=== PATIENT | male | born 1960 | race African-American/Black ===

== ENCOUNTER 2017-12-07 12:28 | Inpatient (IN) | payer BC, OTHER ==
[~2017-12-07] VITALS: Ht 180.3 cm; Wt 93.9 kg
[2017-12-07] MEDS ORDERED: MORPHINE SULFATE 4 MG/ML CPJ (NOT FOR IM USE) IV ONE (15:15)
[2017-12-07] MEDS ORDERED: ONDANSETRON HCL 4MG/2ML VIAL IV ONE (15:15)
[2017-12-07] MEDS ORDERED: SODIUM CHLORIDE 0.9% 1,000 ML IV ONE (16:15)
[2017-12-07] MEDS ORDERED: KETOROLAC 30MG/ML VIAL IV ONE (16:15)
[2017-12-07 16:55] LABS: BASOPHILS % 0.4 % (0.0-2.0); EOSINOPHILS % 0.4 % (0.0-5.0); HEMATOCRIT. 41.9 % (42.0-52.0); HEMOGLOBIN. 13.8 g/dL (14.0-18.0); LYMPHOCYTES % 14.1 % (20.0-50.0); MEAN CORPUSCULAR HEMOGLOBIN 30.4 pg (28.0-32.0); MEAN CORPUSCULAR VOLUME 92.3 fL (80.0-94.0); MEAN PLATELET VOLUME 7.7 fl (7.4-10.4); MONOCYTES % 4.6 % (2.0-8.0); NEUTROPHILS % 80.5 % (40.0-76.0); PLATELET 239 x1000/uL (130-400); RED BLOOD CELL COUNT 4.54 mill/uL (4.7-6.1); RED CELL DISTRIBUTION WIDTH 13.9 % (11.6-14.6)
[2017-12-07 16:57] LABS: CHLORIDE 106 mEq/L (98-107)
[2017-12-07 19:37] LABS: INR 1.1; PROTHROMBIN TIME 11.4 sec (9.4-11.6)
[2017-12-07 21:30] VITALS: BP 120/68
[2017-12-07] MEDS ORDERED: NA PHOS,M-B/NA PHOS,DI-BA ENEMA 118ML PR PRN (22:15)
[2017-12-07] MEDS ORDERED: IPRATROPIUM/ALBUTEROL 0.5-3(2.5)MG/3ML NEB INH PRN (22:15)
[2017-12-07] MEDS ORDERED: MAGNESIUM/ALUMINUM HYDROXIDE/SIMETHICONE 30ML UDC PO PRN (22:15)
[2017-12-07] MEDS ORDERED: GUAIFENESIN 200MG/10ML SUGAR FREE UDC PO PRN (22:15)
[2017-12-07] MEDS ORDERED: HYDROCODONE/ACETAMINOPHEN 5/325MG TABLET PO PRN (22:15)
[2017-12-07] MEDS ORDERED: DOCUSATE SODIUM 100MG CAPSULE PO PRN (22:15)
[2017-12-07] MEDS ORDERED: ACETAMINOPHEN 325MG TABLET PO PRN (22:15)
[2017-12-07] MEDS ORDERED: ACETAMINOPHEN 650MG SUPP PR PRN (22:15)
[2017-12-07] MEDS ORDERED: DIPHENHYDRAMINE 50MG/ML VIAL IV PRN (22:15)
[2017-12-07] MEDS ORDERED: ACETAMINOPHEN 650MG/20.3ML UDC GT PRN (22:15)
[2017-12-07] MEDS ORDERED: CLONIDINE 0.1MG TABLET PO PRN (22:15)
[2017-12-07] MEDS ORDERED: ONDANSETRON HCL 4MG/2ML VIAL IV PRN (22:15)
[2017-12-07] MEDS ORDERED: ENOXAPARIN 40MG/0.4ML SYR SUBCUT SCH (23:00)
[2017-12-07] MEDS: MORPHINE SULFATE 4 MG/ML CPJ (NOT FOR IM USE) IV PRN (23:25)
[2017-12-07 23:49] VITALS: BP 120/68
[2017-12-08] VITALS: BP 120/76
[2017-12-08] MEDS: HYDROCODONE/ACETAMINOPHEN 10/325MG TABLET PO PRN ×2 (02:07→08:18)
[2017-12-08 04:00] VITALS: BP 110/61
[2017-12-08] MEDS: MORPHINE SULFATE 4 MG/ML CPJ (NOT FOR IM USE) IV PRN ×3 (05:14→15:34)
[2017-12-08] MEDS ORDERED: SODIUM CHLORIDE 0.9% INJ 3ML FLUSH IVF SCH (06:00)
[2017-12-08 07:23] LABS: BASOPHILS % 0.2 % (0.0-2.0); EOSINOPHILS % 1.8 % (0.0-5.0); HEMOGLOBIN. 12.6 g/dL (14.0-18.0); LYMPHOCYTES % 28.2 % (20.0-50.0); MEAN CORPUSCULAR HEMOGLOBIN 31.2 pg (28.0-32.0); MEAN CORPUSCULAR VOLUME 91.4 fL (80.0-94.0); MEAN PLATELET VOLUME 8.1 fl (7.4-10.4); MONOCYTES % 8.2 % (2.0-8.0); NEUTROPHILS % 61.6 % (40.0-76.0); PLATELET 213 x1000/uL (130-400); RED BLOOD CELL COUNT 4.05 mill/uL (4.7-6.1); RED CELL DISTRIBUTION WIDTH 13.6 % (11.6-14.6)
[2017-12-08 08:00] VITALS: BP 126/66
[2017-12-08 08:09] LABS: CHLORIDE 107 mEq/L (98-107)
[2017-12-08 08:18] LABS: HDL CHOLESTEROL 45 mg/dL (40-59); LDL CHOLESTEROL 108 mg/dL (5-100)
[2017-12-08 12:00] VITALS: BP 120/71
[2017-12-08 15:34] VITALS: BP 128/78
== END 2017-12-08 16:18 | disposition short-term general hospital (02) | DRG 563 ==
LOC: ER 12:57 → 6EST 16:52 → ENRESERV 20:35
PROVIDERS: ADMIT Internal Medicine Pulmonary Disease; ATTEND Internal Medicine Pulmonary Disease
DX: S82.141A Displaced bicondylar fracture of right tibia, initial encounter for closed fracture (principal); Z80.0 Family history of malignant neoplasm of digestive organs; W11.XXXA Fall on and from ladder, initial encounter; Y93.89 Activity, other specified; Y92.89 Other specified places as the place of occurrence of the external cause; Y99.8 Other external cause status; Z90.49 Acquired absence of other specified parts of digestive tract
CPT/HCPCS: 29505; 36415; 71045; 73590; 80048; 80053; 80061; 85025; 85610; 86850; 86900; 93005; 96361; 96374; 96375; 99285; J1650; J1885; J2270; J2405; J7030

== ENCOUNTER 2020-08-20 23:47 | Emergency (ER) | payer BC, MEDICAID ==
[~2020-08-20] VITALS: Ht 180.3 cm; Wt 86.0 kg
[2020-08-21] MEDS ORDERED: IBUPROFEN 800MG TABLET PO ONE (00:15)
[2020-08-21 01:22] VITALS: BP 128/85
== END 2020-08-21 01:23 | disposition home or self-care (01) ==
LOC: ER 23:54
DX: S50.02XA Contusion of left elbow, initial encounter (principal); Z98.890 Other specified postprocedural states; Y04.0XXA Assault by unarmed brawl or fight, initial encounter; W01.0XXA Fall on same level from slipping, tripping and stumbling without subsequent striking against object, initial encounter; Y93.89 Activity, other specified; Y92.018 Other place in single-family (private) house as the place of occurrence of the external cause
CPT/HCPCS: 29105; 73060; 73080; 93005; 99284; A4565